=== PATIENT | female | born 1980 | race Caucasian/White ===

== ENCOUNTER 2016-04-13 08:00 | Emergency (ER) | payer BC, OTHER ==
[2016-04-13 08:22] VITALS: BP 129/89
--- NOTE | 2016-04-13 08:43 | UC ---
Respiratory Complaint HPI - HPI Summary HPI Summary: COUGH X 5 DAYS , + CHEST CONGESTION, WHEEZING NO FEVER, + CHILLS - History of Current Complaint Chief Complaint: UCGeneralIllness Stated Complaint: WHEEZING,FEVER Time Seen by Provider: 04/13/16 08:14 Hx Obtained From: Patient Hx Last Menstrual Period: 03/30/16 Onset/Duration: Gradual Onset, Lasting Days - 5, Still Present Timing: Constant Severity Initially: Moderate Severity Currently: Moderate Character: Cough: Nonproductive Aggravating Factors: Exertion, Deep Breaths Associated Signs And Symptoms: Positive: Wheezing, URI, Nasal Congestion - Allergies/Home Medications Allergies/Adverse Reactions: Allergies Allergy/AdvReac Type Severity Reaction Status Date / Time Prednisone Allergy Swelling Verified 07/16/13 17:09 Of Face,Lips,& Throat Sulfa Drugs Allergy Itching Verified 07/16/13 17:09 Tetracyclines Allergy Itching Verified 07/16/13 17:09 acid reflux med Allergy Tachycardia Uncoded 07/16/13 17:09 PMH/Surg Hx/FS Hx/Imm Hx Respiratory History Of: Reports: Asthma - Surgical History Surgical History: Yes Surgery Procedure, Year, and Place: tubal; right hand x 2, including ulnar nerve entrapment 1999. tonsilectomy'. eye '94 - Family History Known Family History: Negative: Diabetes - Social History Alcohol Use: None Substance Use Type: None Smoking Status (MU): Never Smoked Tobacco Review of Systems Constitutional: Fatigue Skin: Negative Eyes: Negative ENT: Nasal Discharge Respiratory: Cough Cardiovascular: Negative All Other Systems Reviewed And Are Negative: Yes Physical Exam Triage Information Reviewed: Yes Appearance: Well-Appearing, No Pain Distress, Well-Nourished Vital Signs: Initial Vital Signs Temp 98.6 F 04/13/16 08:15 Pulse 112 04/13/16 08:15 Resp 16 04/13/16 08:15 BP 129/89 04/13/16 08:15 Pulse Ox 97 04/13/16 08:15 Vital Signs Reviewed: Yes Eyes: Positive: Conjunctiva Clear ENT: Positive: Normal ENT inspection, Hearing grossly normal, Pharynx normal, Nasal congestion, Nasal drainage, TMs normal Neck: Positive: Supple, Nontender, No Lymphadenopathy Respiratory: Positive: Chest non-tender, Wheezing Cardiovascular: Positive: No Murmur, Tachycardia Skin Exam: Normal UC Diagnostic Evaluation - Laboratory O2 Sat by Pulse Oximetry: 97 Respiratory Course/Dx - Differential Dx/Diagnosis Provider Diagnoses: BRONCHITIS Discharge - Discharge Plan Condition: Stable Disposition: HOME Prescriptions: Azithromycin TAB* [Zithromax TAB (Z-KENRICK) 250 mg #6 tabs] 2 tab PO .TODAY, THEN 1 DAILY #1 kenrick Levalbuterol HFA INHALER* [Xopenex Hfa Inhaler*] 1 puff INH Q4H PRN #1 mdi PRN Reason: Shortness Of Breath Patient Education Materials: Acute Bronchitis (ED) Referrals: No Primary Care Phys,NOPCP [Primary Care Provider] - 7 Days
== END 2016-04-13 09:24 | disposition home or self-care (01) ==
LOC: UCCORT 08:00
DX: J40 Bronchitis, not specified as acute or chronic (principal); Z88.1 Allergy status to other antibiotic agents; Z88.2 Allergy status to sulfonamides; Z88.8 Allergy status to other drugs, medicaments and biological substances
CPT/HCPCS: 99212; G0463

== ENCOUNTER 2016-05-17 07:13 | Emergency (ER) | payer MEDICAID, OTHER ==
[2016-05-17] MEDS ORDERED: Ondansetron ODT TAB* 4 MG PO ONE ×2 (07:44)
[2016-05-17] MEDS ORDERED: Ketorolac INJ* 30 MG/ML 1 ML VIAL IM ONE ×2 (07:44)
--- NOTE | 2016-05-17 07:51 | UC ---
Abdominal Pain Female HPI - HPI Summary HPI Summary: 35 yo female with the acute onset of 8/10 ruq abd pain about 2AM pain radiates across upper abd and goes to back nausea but no vomiting no f/c last week had gi bug and lost wt only abd surg has been bilateral TL - History of Current Complaint Chief Complaint: UCGI Stated Complaint: RIB/BACK PAIN Time Seen by Provider: 05/17/16 07:34 Hx Obtained From: Patient Hx Last Menstrual Period: 05/03/16 Onset/Duration: Sudden Onset, Lasting Hours Timing: Constant Severity Initially: Severe Severity Currently: Mild Pain Intensity: 3 Pain Scale Used: 0-10 Numeric Location: Discrete At: RUQ Radiates: Yes Radiates to: Back Character: Colicy Aggravating Factor(s): Nothing Alleviating Factor(s): Nothing Associated Signs and Symptoms: Positive: Nausea Allergies/Adverse Reactions: Allergies Allergy/AdvReac Type Severity Reaction Status Date / Time Prednisone Allergy Swelling Verified 05/17/16 07:22 Of Face,Lips,& Throat Sulfa Drugs Allergy Itching Verified 05/17/16 07:22 Tetracyclines Allergy Itching Verified 05/17/16 07:22 acid reflux med Allergy Tachycardia Uncoded 05/17/16 07:22 Home Medications: Home Medications Famotidine TAB* [Pepcid 20 MG TAB*] 20 mg PO DAILY 05/17/16 [History Confirmed 05/17/16] Probiotic Product [Probiotic Daily] 1 cap PO DAILY 05/17/16 [History Confirmed 05/17/16] PMH/Surg Hx/FS Hx/Imm Hx Previously Healthy: Yes Respiratory History Of: Reports: Asthma - Surgical History Surgical History: Yes Surgery Procedure, Year, and Place: tubal; right hand x 2, including ulnar nerve entrapment 1999. tonsilectomy'. eye ' - Family History Known Family History: Positive: Hypertension Negative: Diabetes - Social History Alcohol Use: None Substance Use Type: None Smoking Status (MU): Never Smoked Tobacco Review of Systems Constitutional: Negative Skin: Negative Eyes: Negative ENT: Negative Respiratory: Negative Cardiovascular: Negative Gastrointestinal: Abdominal Pain Genitourinary: Negative Motor: Negative Neurovascular: Negative Musculoskeletal: Negative Neurological: Negative Psychological: Negative All Other Systems Reviewed And Are Negative: Yes Physical Exam Triage Information Reviewed: Yes Appearance: Well-Nourished, Pain Distress Vital Signs: Initial Vital Signs Temp 99.2 F 05/17/16 07:25 Pulse 117 05/17/16 07:25 Resp 20 05/17/16 07:25 BP 133/73 05/17/16 07:25 Pulse Ox 99 05/17/16 07:25 Vital Signs Reviewed: Yes Eyes: Positive: Conjunctiva Clear ENT: Positive: Hearing grossly normal. Negative: Nasal congestion, Nasal drainage Neck: Positive: Supple, Nontender Respiratory: Positive: Lungs clear, Normal breath sounds, No respiratory distress Cardiovascular: Positive: No Murmur, Pulses Normal, Brisk Capillary Refill Abdomen Description: Negative: Nontender - ndernessuq te Bowel Sounds: Positive: Present Musculoskeletal: Positive: ROM Intact, No Edema Neurological: Positive: Alert Psychological Exam: Normal Skin Exam: Normal Abd Pain Female Course/Dx - Course Course Of Treatment: TO [facility]. D/W attending. declines EMS. will drive her - Differential Dx/Diagnosis Provider Diagnoses: RUQ abd pain. suspect gall bladder disease Discharge - Discharge Plan Condition: Stable Disposition: AGAINST MEDICAL ADVICE Referrals: No Primary Care Phys,NOPCP [Primary Care Provider] -
[2016-05-17 08:05] VITALS: BP 115/81
== END 2016-05-17 08:05 | disposition left against medical advice (07) ==
LOC: UCCORT 07:13
DX: R10.11 Right upper quadrant pain (principal); R11.0 Nausea; Z88.2 Allergy status to sulfonamides; Z88.8 Allergy status to other drugs, medicaments and biological substances
CPT/HCPCS: 96372; 99212; A9270-GY; G0463; J1885

== ENCOUNTER 2016-05-17 10:02 | Observation (INO) | payer MEDICAID ==
[2016-05-17] MEDS ORDERED: NS 0.9% 1000 ML* 1,000 ML IV ONE ×2 (10:33)
[2016-05-17 10:53] LABS: Hematocrit 36 % (35-47); Hemoglobin 11.9 g/dl (12.0-16.0); Mean Corpuscular HGB Conc 33 g/dl (31-36); Mean Corpuscular Hemoglobin 26 pg (27-31); Mean Corpuscular Volume 80 fL (80-97); Mean Platelet Volume 9 um3 (7.4-10.4); Red Cell Distribution Width 17 % (10.5-15); White Blood Count 5.8 10^3/ul (3.5-10.8)
[2016-05-17 11:11] LABS: Albumin 3.9 g/dL (3.2-5.2); BUN/Creatinine Ratio 16.2 (8-20); C Reactive Protein 44.53 mg/L (< 5.00); Calcium 8.6 mg/dL (8.6-10.3); EGFR African American 114.2 (>60); EGFR Non-African American 88.8 (>60); Globulin 2.7 g/dL (2-4); Potassium 3.8 mmol/L (3.5-5.0); Total Bilirubin 0.4 mg/dL (0.2-1.0); Total Protein 6.6 g/dL (6.4-8.9)
--- NOTE | 2016-05-17 11:40 | RAD ---
Indication: Right upper quadrant pain. Real-time sonography of the right upper quadrant was performed. The liver measures 18 cm in length. It is diffusely increased in echogenicity consistent with hepatic steatosis. No focal lesions or intrahepatic ductal dilatation is noted. The gallbladder demonstrates moderate distention. There are nonshadowing echogenic foci in the dependent portion of the gallbladder which appear nonshadowing calculi or cholesterol polyps. There is a small amount of pericholecystic fluid present. There is a sonographic Lundberg's sign. Right kidney measures 10.7 x 3.6 x 3.9 cm with no hydronephrosis. Pancreas is not visualized due to overlying gas. Aorta and inferior vena cava are unremarkable. IMPRESSION: Distended gallbladder with pericholecystic fluid and a positive sonographic Lundberg's sign. Echogenic foci in the gallbladder which are nonshadowing in the dependent portion of the gallbladder for which this may represent polyps or nonshadowing gallstones.
[2016-05-17] MEDS ORDERED: Ondansetron INJ* 2 MG/ML VIAL IV ONE ×2 (13:30)
[2016-05-17] MEDS ORDERED: Morphine INJ* 4 MG/ML 1 ML CARPUJECT IV ONE ×2 (13:30)
[2016-05-17] MEDS ORDERED: Acetaminophen TAB* 325 MG PO ONE (13:48)
[2016-05-17] MEDS ORDERED: Acetaminophen TAB* 325 MG PO PRN (13:48)
[2016-05-17] MEDS ORDERED: Morphine INJ* 2 MG/ML 1 ML CARPUJECT IV PRN ×2 (13:48→16:28)
[2016-05-17] MEDS ORDERED: Ondansetron INJ* 2 MG/ML VIAL IV PRN (13:50)
[2016-05-17] MEDS ORDERED: Famotidine IV * 20 MG in NS 0.9% 100 ML* 100 ML IVPB ONE ×4 (13:53)
[2016-05-17] MEDS ORDERED: Atracurium* 10 MG/ML 10 ML VIAL ONE ×2 (14:07)
[2016-05-17] MEDS ORDERED: Midazolam* 1 MG/ML 5 ML VIAL (5 MG) ONE ×2 (14:07)
[2016-05-17] MEDS ORDERED: Morphine INJ* 10 MG/ML 1 ML CARPUJECT ONE ×2 (14:07)
[2016-05-17] MEDS ORDERED: KETAMINE HCL* 50 MG/ML 10 ML VIAL ONE (14:07)
[2016-05-17] MEDS ORDERED: fentaNYL* 50 MCG/ML 2 ML VIAL (100 MCG VIAL) ONE ×2 (14:07)
--- NOTE | 2016-05-17 14:11 | ED ---
Latrell Villa Adam, scribed for Ronald Chaparro MD on 05/17/16 at 1037 . Abdominal Pain/Female - HPI Summary HPI Summary: Pt is a 35 year old female presenting with RUQ abdominal pain. The pain set on suddenly at 03:20 this morning, waking the pt from sleep. She states that she had already woken up several times to urinate during the night. The RUQ pain radiates around to the pt's back. She went to [facility] and states that she was sent to the ED for ultrasound. Her pain was 8/10 in severity but is currently 4-5 after she was given Toradol at the clinic. Pt also c/o nausea, chills, and soft stool which is not watery. She denies vomiting. She states that she and the rest of her family had a stomach bug last week but that she has not experienced this pain before. PMHx of asthma and macular degeneration. Surgical Hx of tubal ligation and tonsillectomy. No tobacco/alcohol use. - History of Current Complaint Chief Complaint: EDAbdPain Stated Complaint: ABD/BACK PAIN/NAUSEA Time Seen by Provider: 05/17/16 10:26 Hx Obtained From: Patient Hx Last Menstrual Period: 05/03/16 Onset/Duration: Sudden Onset, Lasting Hours, Still Present Timing: Constant Severity Initially: Moderate Severity Currently: Moderate Pain Intensity: 6 Pain Scale Used: 0-10 Numeric Location: Discrete At: RUQ Radiates: Yes Radiates to: Back Aggravating Factor(s): Nothing Alleviating Factor(s): Medications - Toradol Associated Signs and Symptoms: Positive: Back Pain, Nausea, Diarrhea - Soft stool, not watery, Other: - Chills. Negative: Vomiting Allergies/Adverse Reactions: Allergies Allergy/AdvReac Type Severity Reaction Status Date / Time Prednisone Allergy Swelling Verified 05/17/16 10:06 Of Face,Lips,& Throat Sulfa Drugs Allergy Itching Verified 05/17/16 10:06 Tetracyclines Allergy Itching Verified 05/17/16 10:06 acid reflux med Allergy Tachycardia Uncoded 05/17/16 10:06 PMH/Surg Hx/FS Hx/Imm Hx Respiratory History: Reports: Hx Asthma - Surgical History Surgery Procedure, Year, and Place: tubal; right hand x 2, including ulnar nerve entrapment 1999. tonsilectomy. 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 Negative: Vomiting All Other Systems Reviewed And Are Negative: Yes Physical Exam - Summary Physical Exam Summary: VITAL SIGNS: Reviewed. GENERAL: Patient is a well developed and nourished female who is lying comfortable in the stretcher. Patient is not in any acute respiratory distress. HEAD AND FACE: Normocephalic and atraumatic. EYES: PERRLA, EOMI x 2, No injected conjunctiva. EARS: Hearing grossly intact. Ear canals and tympanic membranes are WNL. MOUTH: Oropharynx within normal limits. NECK: Supple, trachea is midline, no adenopathy, no JVD. CHEST: Symmetric, no tenderness at palpation LUNGS: Clear to auscultation bilaterally. No wheezing or crackles. CVS: RRR,, S1 and S2 present, no murmurs or gallops appreciated. ABDOMEN: Soft, positive RUQ tenderness. No signs of distention. Positive bowel sounds. No rebound no guarding, and no masses palpated. No abdominal bruit or pulsations. EXTREMITIES: FROM in all major joints, no edema, no cyanosis or clubbing. NEURO: Alert and oriented x 3. No acute neurological deficits. Speech is normal. SKIN: Dry and warm Triage Information Reviewed: Yes Vital Signs On Initial Exam: Initial Vitals Temp Pulse Resp BP Pulse Ox 99.1 F 103 16 125/82 98 05/17/16 10:06 05/17/16 10:06 05/17/16 10:06 05/17/16 10:06 05/17/16 10:06 Vital Signs Reviewed: Yes Diagnostics - Vital Signs Vital Signs Temp Pulse Resp BP Pulse Ox 05/17/16 10:06 99.1 F 103 16 125/82 98 - Laboratory Result Diagrams: 05/17/16 10:40 05/17/16 10:40 Lab Statement: Any lab studies that have been ordered have been reviewed, and results considered in the medical decision making process. - Additional Comments Diagnostic Additional Comments: Gallbladder ultrasound - IMPRESSION: Distended gallbladder with pericholecystic fluid and a positive sonographic Lundberg's sign. Echogenic foci in the gallbladder which are nonshadowing in the dependent portion of the gallbladder for which this may represent polyps or nonshadowing gallstones. Abdominal Pain Fem Course/Dx - Course Course Of Treatment: Surgery was called at approximately 12:00. The doctor was in surgery but was to be notified of the request for consult. 13:10 - The PA for Dr. Guadalupe came to examine the patient and decided to discharge her home, but the patient is now in pain. 13:15 - Talked to Dr. Guadalupe on the phone. He will send the PA back down to re-examine the patient. 13:26 - Dr. Guadalupe's PA came to re-examine the patient and they have decided to accept her for admission. Pt is a 35 year old female presenting with RUQ abdominal pain. The pain set on suddenly at 03:20 this morning, waking the pt from sleep. She states that she had already woken up several times to urinate during the night. The RUQ pain radiates around to the pt's back. She went to [facility] and states that she was sent to the ED for ultrasound. Her pain was 8/10 in severity but is currently 4-5 after she was given Toradol at the clinic. Pt also c/o nausea, chills, and soft stool which is not watery. She denies vomiting. She states that she and the rest of her family had a stomach bug last week but that she has not experienced this pain before. PMHx of asthma and macular degeneration. Surgical Hx of tubal ligation and tonsillectomy. No tobacco/alcohol use. BW is WNL except for hemoglobin of 11.9 and C-Reactive Protein of 44.53. US of RUQ shows a distended gallbladder with pericholecystic fluid and positive Lundberg's sign. I discussed the case with Dr. Guadalupe who sent a PA to evaluate the patient. Inititially they recommended that the pt be discharged seeing as she was asymptomatic. Before discharge the pt developed more pain with mild nausea without vomiting. The pt was reassessed by Dr. Guadalupe' s PA and now they recommend for the pt to be admitted for further work-up and management. The pt was given IV fluids, somethng for nausea, and morphine for pain. The pt is hemodynamically stable and A&Ox3. She will be admitted to Dr. Guadalupe's services. - Diagnoses Differential Diagnosis: Positive: Constipation, Gall Bladder Disease, Pancreatitis, Renal Colic, Urinary Tract Infection Provider Diagnoses: Acute cholecystitis Discharge - Discharge Plan Condition: Stable Disposition: ADMITTED TO [facility] Referrals: No Primary Care Phys,NOPCP [Primary Care Provider] - The documentation as recorded by the Latrell rojas Adam accurately reflects the service I personally performed and the decisions made by me, Ronald Chaparro MD.
[2016-05-17 14:28] LABS: Urine Bacteria Absent (Absent); Urine Bilirubin Negative (Negative); Urine Glucose Negative (Negative); Urine Nitrite Negative (Negative)
[2016-05-17] MEDS ORDERED: Famotidine IV* 10 MG/ML 2 ML (20 mg) IV ONE (16:27)
[2016-05-17] MEDS ORDERED: Buffered Lidocaine 1% SYR 3ML* 3 ML/SYR SYRINGE INTRADERM ONE (16:27)
[2016-05-17] MEDS ORDERED: PROCHLORPERAZINE INJ 5 MG/ML 2 ML VIAL IV PRN (16:28)
[2016-05-17] MEDS ORDERED: oxyCODONE/Acetamin 5/325 MG* TAB PO PRN ×3 (16:28→18:48)
[2016-05-17] MEDS ORDERED: fentaNYL* 50 MCG/ML 2 ML VIAL (100 MCG VIAL) IV PRN (16:28)
[2016-05-17] MEDS ORDERED: ceFAZolin 2 GM PREMIX (*) 2 GM/50 ML BAG IVPB ONE ×2 (16:36)
[2016-05-17] MEDS ORDERED: Levalbuterol 1.25MG/0.5ML NEB ONE ×2 (17:04)
[2016-05-17] MEDS ORDERED: Scopolamine 1.5 mg* PATCH ONE ×2 (17:04)
[2016-05-17] MEDS ORDERED: Levalbuterol 0.63MG/3ML NEB INH ONE (17:09)
[2016-05-17] MEDS ORDERED: Bupivacaine 0.25% EPI 200,000* 30 ML SDV ONE ×2 (17:22)
[2016-05-17] MEDS ORDERED: Dexamethasone IV* 4 MG/ML 1 ML (4 MG) ONE ×2 (17:38)
[2016-05-17] MEDS ORDERED: PROCHLORPERAZINE INJ 5 MG/ML 2 ML VIAL ONE ×2 (17:38)
[2016-05-17] MEDS ORDERED: Lidocaine 2% PF * 5 ML VIAL ONE ×2 (17:38)
[2016-05-17] MEDS ORDERED: Ondansetron INJ* 2 MG/ML VIAL ONE ×2 (17:38)
[2016-05-17] MEDS ORDERED: Propofol* 10 MG/ML 20 ML BTL IV PUSH ONE ×2 (17:38)
--- NOTE | 2016-05-17 17:42 | CONS ---
Amended report to correct account number. CONSULTATION REPORT: DATE OF CONSULT: 05/17/16 ATTENDING PHYSICIAN: Sidney Dominguez MD. REASON FOR CONSULTATION: Right upper quadrant abdominal pain and acute cholecystitis. CHIEF COMPLAINT: Abdominal pain. HISTORY OF PRESENT ILLNESS: Ms. Zamudio is a pleasant 35-year-old female who presented to the emergency room earlier today with complaints of progressively worsening epigastric and right upper quadrant pain since early this morning. The patient notes that her pain started roughly around 3 o'clock this morning that awakened her up from her sleep. She notes pain has been dull and sharp on occasion, located in the epigastric and right upper quadrant with radiation to her right flank and back. She notes associated nausea, but denies any vomiting. She already has awoken several times during the night, but pain has gotten progressively worse that kept her awake since 3 o'clock this morning. She denies any other associated symptoms. She has never had any similar complaints in the past. She denies any jaundice or changes in the color of stools or urine. She went to [facility] where she resides close by and she was evaluated there and was told to come to the emergency room for further evaluation regarding possible gall-bladder disease. Her pain back then was 8/10 in severity and was relieved after she was given a shot of Toradol. During her ER visit, the patient noted that pain eventually got better and denies any further nausea or vomiting. She notes that herself and her entire family had had "stomach bug" last week, but everybody has been doing well since last Sunday with the exception of occasional diarrhea last week and she denies any changes in the bowel habits. She otherwise is a relatively healthy young female who appeared comfortable at this time of consultation. PAST MEDICAL HISTORY: Significant for macular degeneration for which she had a surgery on her left eye at age 13. She tells me that she is legally blind. She also has a history of asthma with occasional use of inhalers. PAST SURGICAL HISTORY: Significant for tubal ligation and tonsillectomy. She denies any prior abdominal surgery. CURRENT MEDICATIONS: At home include: 1. Pepcid 20 mg p.o. daily. 2. Albuterol inhaler 2 puffs as needed for shortness of breath. 3. Probiotic product such as yogurt. ALLERGIES: She reports allergies to PREDNISONE causing swelling of her face and throat, SULFA DRUGS and TETRACYCLINES that caused itching as well as some acid reflux medicine that she could not remember the name that caused tachycardia. FAMILY HISTORY: Significant for hypertension and cardiovascular disease on both her maternal and paternal sides, but denies any colorectal malignancies. She also notes history of gallbladder disease in her maternal grandmother and few aunts and uncles. SOCIAL HISTORY: The patient is a nonsmoker who drinks rarely and denies any recreational drug use. REVIEW OF SYSTEMS: See HPI. Otherwise negative. She denies any fever, chills , or recent weight loss. No sore throat, difficulty breathing, or dysphagia. No dyspnea, shortness of breath, or chest pain. Denies any syncope, blurred vision, or diplopia. She denies any hematuria, dysuria, or urinary frequency. PHYSICAL EXAM: General: She is a pleasant, obese, middle-aged female in no acute distress or discomfort at the time of consultation. Vitals: Her vitals revealed a temperature of 99.1. Her blood pressure is 125/77, O2 sats of 98%, pulse of 102. HEENT: Sclerae anicteric. PERRLA. EOMs intact. Oropharynx is pink, moist with no exudate. Neck: Supple. Trachea midline. No cervical adenopathy, thyromegaly, or JVD. Lungs: Clear to auscultation bilaterally. Heart: Regular rate and rhythm. Normal S1 and S2 without rubs, murmurs, or gallops. Back: With normal curvature. No CVA tenderness. Breast Exam: Deferred at this time. Abdomen: Soft and nondistended. There is moderate epigastric and right upper quadrant tenderness on palpation. There is no guarding, rigidity, or rebound tenderness. No hernias, masses, or hepatosplenomegaly. There is very mild positivity for Lundberg's sign on deep palpation. Extremities: Without cyanosis, clubbing, or edema. Neurologic: Grossly intact. Rectal: Exam deferred at this time. LABORATORY WORKUP: The patient had CBC and chemistry workup at ED visit revealing normal white count of 5800, hemoglobin 11.9, hematocrit 36, and platelets of 213. Her sodium was 136, potassium 3.8, chloride 104, carbon dioxide 26, BUN is 12, creatinine 0.7, and glucose of 94. Her C-reactive protein was elevated at 44.5 value. The remainder of her LFTs, amylase, and lipase were normal. ACCESSORY DIAGNOSTIC DATA: The patient had a right upper quadrant ultrasound that revealed findings consistent with distended gallbladder with pericholecystic fluid and positive sonographic Lundberg's sign. There was no gallbladder wall thickening or any evidence of CBD dilatation. There is also some suggestion of gallstones or possibly gallbladder polyps within the cavity. ASSESSMENT: A 35-year-old female with signs and symptoms consistent with acute attack of gallbladder disease and ultrasound findings consistent with acute cholecystitis. PLAN: During her ER stay, the patient had noted that her pain has gotten significantly worse since I saw her earlier, for which I talked to her proceeding with surgery later today. The rationale, indications, risks, and benefits of proceeding with a laparoscopic cholecystectomy were discussed with her today. The risks include but not limited to infection, bleeding, or injury to adjacent structures. I also expressed the option of managing her pain as well as seeing her in the office as an outpatient to schedule her surgery electively. Given her recurrent pain on and off since earlier this morning, the patient wishes to proceed with surgery later this afternoon. The case was discussed with Dr. Dominguez who agreed to the plans as outlined. The patient will be kept n.p.o. We will start her on IV fluids as well as analgesics and Pepcid in anticipation for a laparoscopic cholecystectomy later this afternoon. We will follow her up accordingly. SCARLETT ZEPEDA [id number]/[facility] #: [id number] [facility] HOSPITALPapa
[2016-05-17] MEDS ORDERED: Metoprolol Tartrate IV* 1 MG/ML 5 ML VIAL ONE ×2 (17:48)
[2016-05-17] MEDS ORDERED: Neostigmine Methylsulfate* 2 MG/2 ML SYRINGE ONE ×4 (17:48→18:20)
[2016-05-17] MEDS ORDERED: Glycopyrrolate IV* 0.2 MG/ML 1 ML VIAL ONE ×4 (17:48→18:20)
[2016-05-17] MEDS ORDERED: Scopolamine 1.5 mg* PATCH TRANSDERM SCH ×2 (18:00)
[2016-05-17] MEDS ORDERED: Levalbuterol HFA INHALER* 1 PUFF MDI INH ONE (18:48)
[2016-05-17] MEDS ORDERED: Levalbuterol HFA INHALER* 1 PUFF MDI INH PRN (18:48)
--- NOTE | 2016-05-17 18:52 | PN ---
Progress Note - Progress Note Note: Brief Operative Note: Preop Dx: Acute cholecystitis Postop Dx: same Procedure: laparoscopic cholecystectomy Anesthesia: GET Surgeon: Alberto Asst: SCARLETT Min EBL: <100 ml Fluids: 1000 ml RL Drains: none Specimen: GB Findings: dictated
[2016-05-18 08:17] VITALS: BP 124/65
[2016-05-18] MEDS ORDERED: Influenza VAC *QUAD* 2016-17* 0.5 ML SYRINGE IM ONE (09:00)
--- NOTE | 2016-05-18 09:55 | SURGPN ---
Subjective - Introduction -: Admitted on: 05/17/2016 Patient's surgical date: 05/17/2016 Procedure completed: Laparoscopic cholecystectomy - Medications -: Active Medications Generic Name Dose Route Start Last Admin Trade Name Cynthia PRN Reason Stop Dose Admin Acetaminophen 650 mg 05/17/16 13:48 05/18/16 06:27 Tylenol Tab* PO 650 mg Q6H PRN Administration PAIN Levalbuterol HCl 1 puff 05/17/16 18:48 Xopenex Hfa Inhaler* INH Q4H PRN SHORTNESS OF BREATH Ondansetron HCl 4 mg 05/17/16 13:50 Zofran Inj* IV Q4H PRN NAUSEA Oxycodone/Acetaminophen 1 tab 05/17/16 18:47 Percocet 5/325 Tab* PO Q4H PRN PAIN - MODERATE Oxycodone/Acetaminophen 2 tab 05/17/16 18:48 Percocet 5/325 Tab* PO Q4H PRN PAIN - MODERATE TO SEVERE Pharmacy Profile Note 1 note 05/20/16 18:00 Scopolomine Patch Remove* PATCH OFF 05/20/16 23:59 .AFTER 72 HOURS MEERA - Comments Comments: Patient reports doing well, denies any complaints. Tolerating diet, denies N/V, fever or chills. Objective - Objective -: Awake and alert, sitting on her bed, in NAD - Intake and Output -: Intake & Output 05/16/16 05/17/16 05/18/16 05/19/16 06:59 06:59 06:59 06:59 Intake Total 1919 Output Total 1475 Balance 444 Weight 175 lb Intake: IV Fluids 1198 LR 1000 NS 50ML, Cefazolin 2G 50 IVPB 421 LR 421 Oral 300 Output: Urine 1475 Other: # Bowel Movements 0 Estimated Blood Loss MINIMAL Comment Surgical Physical Exam - Comments -: Vitals reviewed, afebrile. Lungs, CTA bilat. Abdomen: Soft, no-distended. Mild incisional tenderness. No rigidity, gaurding or rebound tenderness. Incisions clean, dry and intact. Ext.: No edema. Assessment and Plan - Assessment -: A 35 y/o female, s/p laparoscopic cholecystectomy, doing well. - Plan Surgical Plan of Care: Discontinue IV, Discharge Additional Comments: Patient will be discharged to home this AM. She is stable, doing well and in no pain. All discharge instructions were discussed with her. She will F/U with office next week.
--- NOTE | 2016-05-18 23:07 | DS ---
DISCHARGE SUMMARY: DATE OF ADMISSION: 05/17/16 DATE OF DISCHARGE: 05/18/16 PATIENT OF: Dr. Sidney Dominguez. REASON FOR ADMISSION: Abdominal pain and acute cholecystitis. ADMISSION DIAGNOSES: 1. Abdominal pain, right upper quadrant. 2. Acute cholecystitis. 3. Gastroesophageal reflux disease. 4. Asthma. DISCHARGE DIAGNOSES: 1. Abdominal pain, right upper quadrant. 2. Acute cholecystitis. 3. Gastroesophageal reflux disease. 4. Asthma. ADMITTING PHYSICIAN: Dr. Sidney Dominguez. CONSULTATIONS: None. PROCEDURE: Laparoscopic cholecystectomy on 05/17/16. BRIEF HISTORY OF PRESENT ILLNESS: Ms. Zamudio is a pleasant 35-year-old female who presented to the emergency room with complaints of acute onset of right upper quadrant abdominal pain since earlier that morning. She noted that she got up roughly around 3 o'clock on 05/17/16 with sudden onset of epigastric and right upper quadrant abdominal pain that has gotten progressively worse for which she went to the urgent care clinic and was evaluated. The patient was asked to go to the emergency room for further evaluation regarding gallbladder disease. During her ER visit, she had an ultrasound that revealed dilated gallbladder and pericholecystic fluid consistent with acute cholecystitis. We were asked to see the patient for consultation regarding her pain and findings of the ultrasound for which she was admitted and planned to have surgery later that day. She otherwise is a relatively healthy, middle-aged female with a past medical history significant for GERD and asthma. HOSPITAL COURSE: The patient was admitted directly from the emergency room in anticipation for surgery later that day. She went to the operating room in the afternoon of 05/17/16 and she underwent a laparoscopic cholecystectomy that was uneventful. She went to recovery after that in stable condition and was admitted back to the floor for observation overnight. She did very well, was only mild incisional discomfort on the next morning. She denied any nausea, vomiting, or any changes in the bowel habits. She was able to tolerate clear liquid diet and her diet was eventually advanced to regular on the next day. She continued to improve and was ambulatory and was ready to be discharged home on 05/18/16. DISCHARGE MEDICATIONS: The patient was discharged on her usual home medications includin. Pepcid 20 mg p.o. daily. 2. Xopenex inhaler 2 puffs q.4 to 6 hours as needed for pain. 3. Tylenol Extra Strength as needed for pain. PROBLEM LIST: Acute cholecystitis, status post laparoscopic cholecystectomy on 05/18/16. SCARLETT ZEPEDA [id number]/[facility] #: [id number] MTDD
[2016-05-20] MEDS ORDERED: Scopolamine PATCH Remove* 1 NOTE MISC PATCH OFF SCH (18:00)
--- NOTE | 2016-05-25 18:00 | OP ---
DATE OF OPERATION: 05/17/16 - ROOM #339 DATE OF : 78 SURGEON: Sidney Dominguez MD. HORSE RIDER: SCARLETT Thrasher ANESTHESIOLOGIST: Elian Addison MD ANESTHESIA: General anesthesia. PRE-OP DIAGNOSIS: Acute cholecystitis. POST-OP DIAGNOSIS: Acute cholecystitis. OPERATIVE PROCEDURE: Laparoscopic cholecystectomy. ESTIMATED BLOOD LOSS: Less than 100 cc. FLUIDS: 1000 cc of Lactated Ringer's. DRAINS: None. SPECIMEN: Gallbladder. INDICATIONS OF PROCEDURE: Ms. Zamudio is a 35-year-old female who was admitted to the hospitalist service, we were consulted, and the patient was seen by So PANTOJA, and the case was discussed on 05/17/16. After examining the patient, I agreed with the diagnosis of acute cholecystitis and recommended laparoscopic cholecystectomy. I discussed the procedure with her, going over the risks, benefits, and alternatives and the patient agreed to proceed. As per routine, we spoke of the possible complications, which include but are not limited to bleeding, infection, bile leak, common bile duct or bowel injury, need for open procedure, or need for additional procedures. The patient signed consent, was marked, and then taken to the operating room. DESCRIPTION OF PROCEDURE: The patient was identified in the preoperative area, marked and brought to the OR, placed on the operating room table in the supine position. Preoperative antibiotics were given. Sequential devices were placed on bilateral lower extremities. General anesthesia was induced. The patient's abdomen was prepped and draped in a standard surgical fashion and a time-out was performed. The folds of the umbilicus were elevated anteriorly and a Veress needle was inserted into the abdominal cavity, which was then allowed to be insufflated to a pressure of 15 mmHg. The patient tolerated the insufflation well. A paraumbilical incision was then made and a 5-mm trocar was inserted. Veress needle was removed. Review of the abdomen showed no evidence of trocar injury or Veress needle injury. Attention was then turned to the right upper quadrant. Additional trocars were then placed in the following position; a 12 mm in the subxiphoid area and two 5 mm along the right costal margin. Fundus of the gallbladder was identified, this was somewhat edematous, it was grasped and retracted over the liver. Infundibulum was then grasped and retracted laterally. Electrocautery was used to free the peritoneum off the lateral aspect of the gallbladder and off the medial aspect. This gave us an opportunity to see the cystic duct extending towards the aime hepatis. The common bile duct was never clearly visualized, but we persisted in isolating the cystic duct. Cystic artery was isolated, was doubly clipped and ligated, cystic duct was triply clipped and ligated. Gallbladder was perforated at this point, but we are able to remove it from its liver bed, place it in the endoscopic retrieval bag and bring it out through the subxiphoid port site. Suction irrigation was used until the effluent was clear. The cystic duct stump and cystic artery stump showed no bleeding or bile leak. The abdomen was then allowed to collapse. Trocars were removed under direct vision. All four skin incisions were reapproximated with 4-0 Monocryl subcuticular sutures followed by sterile dressing. [id number]/[facility] #: [id number] BRISSA
== END 2016-05-18 11:30 | disposition home or self-care (01) ==
LOC: ED 10:02 → SSU 13:41
PROVIDERS: ADMIT Surgery; ATTEND Surgery
PROC: 0FT44ZZ Resection of Gallbladder, Percutaneous Endoscopic Approach (ICD-10-PCS; principal; 2016-05-17 15:45)
DX: K81.0 Acute cholecystitis (principal); K21.9 Gastro-esophageal reflux disease without esophagitis; J45.909 Unspecified asthma, uncomplicated; Z88.2 Allergy status to sulfonamides; Z88.1 Allergy status to other antibiotic agents; Z88.8 Allergy status to other drugs, medicaments and biological substances; Z23 Encounter for immunization
CPT/HCPCS: 36415; 76705; 80053; 81003; 81015; 82150; 83690; 85025; 86140; 87086; 88304; 90471; 90686; 94760; 99284; A9270-GY; G0008; G0378; J0690; J0780; J1100; J2250; J2270; J2405; J2704; J3010; J3490

== ENCOUNTER 2016-08-23 08:25 | Emergency (ER) | payer OTHER ==
[2016-08-23 08:38] VITALS: BP 110/64
--- NOTE | 2016-08-23 08:53 | UC ---
Throat Pain/Nasal Yovani HPI - HPI Summary HPI Summary: The patient comes in today for: 1. Sore throat: Onset: 5 days. Palliative/provocative: Swallowing makes it worse as does eating. Quality: Scratchy Region: Posterior pharynx. Severity: 5/10 Time: Constant. Associated symptoms: Cough: Present, non-productive. Rhinitis: None. FEvers: None. * - History of Current Complaint Chief Complaint: UCGeneralIllness Stated Complaint: SORE THROAT Time Seen by Provider: 08/23/16 08:40 Hx Obtained From: Patient Hx Last Menstrual Period: 08/21/16 - Allergies/Home Medications Allergies/Adverse Reactions: Allergies Allergy/AdvReac Type Severity Reaction Status Date / Time Prednisone Allergy Swelling Verified 08/23/16 08:33 Of Face,Lips,& Throat Ranitidine [From Zantac] Allergy Tachycardia Verified 08/23/16 08:33 Sulfa Drugs Allergy Itching Verified 08/23/16 08:33 Tetracyclines Allergy Itching Verified 08/23/16 08:33 Seasonal Allergies Allergy Runny Nose Uncoded 08/23/16 08:33 Home Medications: Home Medications Ibuprofen TAB* [Advil TAB*] 600 mg PO Q6H PRN 08/23/16 [History Confirmed ] PMH/Surg Hx/FS Hx/Imm Hx Previously Healthy: No Respiratory History: Asthma GI/ History: Gastroesophageal Reflux - Surgical History Surgical History: Yes Surgery Procedure, Year, and Place: Cholecystectomy, 05/17/16, [facility] [place]; Tubal Ligation, 2009, [facility] [place]; right hand x 2, including ulnar nerve entrapment 1999. tonsilectomy - Family History Known Family History: Positive: Cardiac Disease, Hypertension, Other - "Everything" Negative: Diabetes - Social History Occupation: Unemployed Alcohol Use: None Substance Use Type: None Smoking Status (MU): Never Smoked Tobacco - Immunization History Most Recent Influenza Vaccination: 05/18/16 Most Recent Tetanus Shot: unknown Most Recent Pneumonia Vaccination: approx 2009 Review of Systems Constitutional: Negative Skin: Negative Eyes: Negative ENT: Sore Throat Respiratory: Negative Cardiovascular: Negative Gastrointestinal: Negative Genitourinary: Negative All Other Systems Reviewed And Are Negative: Yes Physical Exam Triage Information Reviewed: Yes Appearance: Well-Appearing, No Pain Distress, Well-Nourished Vital Signs: Initial Vital Signs Temp 98.8 F 08/23/16 08:30 Pulse 90 08/23/16 08:30 Resp 16 08/23/16 08:30 BP 110/64 08/23/16 08:30 Pulse Ox 98 08/23/16 08:30 Vital Signs Reviewed: Yes Eyes: Positive: Conjunctiva Clear. Negative: Discharge ENT: Positive: Hearing grossly normal. Negative: Pharyngeal erythema, Nasal congestion, Nasal drainage, TM bulging, TM dull, TM red, Tonsillar swelling, Tonsillar exudate Dental: Negative: Gross Decay/Caries @, Dental Fracture @ Neck: Positive: Supple, Nontender, No Lymphadenopathy. Negative: Nuchal Rigidity Respiratory: Positive: Lungs clear, No respiratory distress, No accessory muscle use. Negative: Crackles, Wheezing Cardiovascular: Positive: RRR, No Murmur Abdomen Description: Positive: Nontender, No Organomegaly, Soft. Negative: Distended, Guarding Musculoskeletal: Positive: Strength Intact, ROM Intact Neurological: Positive: Alert, Muscle Tone Normal Psychological: Positive: Age Appropriate Behavior, Consolable Skin: Negative: rashes, breakdown Diagnostics - Laboratory Diagnostic Studies Completed/Ordered: Strep test: (+). Throat Pain/Nasal Course/Dx - Course Assessment/Plan: Patient told of the positive strep test. Treatment discussed. - Differential Dx/Diagnosis Provider Diagnoses: Strep throat. Discharge - Discharge Plan Condition: Stable Disposition: HOME Patient Education Materials: Strep Throat (ED) Referrals: No Primary Care Phys,NOPCP [Primary Care Provider] - 1 Week (Please see your primary care provider in about a week. If you don't have a primary care provider, please reference the included sheet of local provider. If you get worse, please be seen sooner.)
== END 2016-08-23 09:00 | disposition home or self-care (01) ==
LOC: UCCORT 08:25
DX: J02.0 Streptococcal pharyngitis (principal)
CPT/HCPCS: 87651; 99212; G0463

== ENCOUNTER 2017-05-01 12:04 | Emergency (ER) | payer MEDICAID, OTHER ==
[2017-05-01 14:14] VITALS: BP 154/73
--- NOTE | 2017-05-28 09:51 | UC ---
FLU HPI - HPI Summary HPI Summary: 36 year old female with c/o: body aches, low grade fevers, itching, coughing- non-productive, nausea- no vomiting. PMH- + for asthma. - History of Current Complaint Chief Complaint: UCGeneralIllness Stated Complaint: FEVER,DRY COUGH Time Seen by Provider: 05/01/17 14:12 Hx Obtained From: Patient Hx Last Menstrual Period: DUE NOW Onset/Duration: Gradual Onset, Lasting Days Severity Currently: Mild Severity Initially: Mild Pain Intensity: 0 Pain Scale Used: 0-10 Numeric Associated Signs & Symptoms: Positive: Fever, Cough Related Hx: Possible Flu/Infectious Exposure - Allergy/Home Medications Allergies/Adverse Reactions: Allergies Allergy/AdvReac Type Severity Reaction Status Date / Time MS Prednisone [Prednisone] Allergy Swelling Verified 05/01/17 14:14 Of Face,Lips,& Throat MS Ranitidine [From Zantac] Allergy Tachycardia Verified 05/01/17 14:14 MS Sulfa Drugs [Sulfa Drugs] Allergy Itching Verified 05/01/17 14:14 MS Tetracyclines Allergy Itching Verified 05/01/17 14:14 [Tetracyclines] Seasonal Allergies Allergy Runny Nose Uncoded 05/01/17 14:14 PMH/Surg Hx/FS Hx/Imm Hx Previously Healthy: No - asthma - Surgical History Surgical History: Yes Surgery Procedure, Year, and Place: Cholecystectomy, 05/17/16, [facility] [place]; Tubal Ligation, 2009, [facility] [place]; right hand x 2, including ulnar nerve entrapment 1999. tonsilectomy', GALLBLADDER REMOVED - Family History Known Family History: Positive: Cardiac Disease, Hypertension, Other - "Everything" Negative: Diabetes - Social History Alcohol Use: None Substance Use Type: None Smoking Status (MU): Never Smoked Tobacco - Immunization History Most Recent Influenza Vaccination: 05/18/16 Most Recent Tetanus Shot: unknown Most Recent Pneumonia Vaccination: approx 2009 Review of Systems Constitutional: Fever, Fatigue Respiratory: Cough Gastrointestinal: Nausea Musculoskeletal: Myalgia Neurological: Negative Psychological: Negative Is Patient Immunocompromised?: No All Other Systems Reviewed And Are Negative: Yes Physical Exam Triage Information Reviewed: Yes Appearance: Well-Appearing, No Pain Distress, Well-Nourished Vital Signs: Initial Vital Signs Temp 99.1 F 05/01/17 14:08 Pulse 100 05/01/17 14:08 Resp 18 05/01/17 14:08 BP 154/73 05/01/17 14:08 Pulse Ox 97 05/01/17 14:08 Vital Signs Reviewed: Yes Eyes: Positive: Conjunctiva Clear ENT: Positive: Pharyngeal erythema - minimal, TMs normal, Uvula midline. Negative: Tonsillar swelling, Tonsillar exudate, Hoarse voice, Sinus tenderness Neck: Positive: Supple, Nontender, No Lymphadenopathy Respiratory: Positive: Chest non-tender, Lungs clear, Normal breath sounds, No respiratory distress, No accessory muscle use. Negative: Crackles, Rhonchi, Stridor, Wheezing Cardiovascular: Positive: RRR, No Murmur, Pulses Normal Abdomen Description: Positive: Nontender, Soft, CVA Tenderness (R), CVA Tenderness (L) Neurological Exam: Normal Psychological Exam: Normal Skin Exam: Normal Flu Course/Dx - Course Course Of Treatment: rapid flu negative, viral illness, work note given, conservative treatments. - Differential Dx/Diagnosis Differential Diagnosis/HQI/PQRI: Influenza, Pneumonia, RSV, Upper Respiratory Infection Provider Diagnoses: URI Discharge - Discharge Plan Condition: Good Disposition: HOME Prescriptions: Dextromethorphan/Benzocaine [Cepacol Sorethroat-Cough Andre] 1 each PO Q6HR #30 lozenge Patient Education Materials: Viral Syndrome (ED) Forms: *Work Release Referrals: No Primary Care Phys,NOPCP [Primary Care Provider] - Additional Instructions: - increase fluid intake - lozenges for sore throat - MOtrin/ tylenol as needed for pain
== END 2017-05-01 15:26 | disposition home or self-care (01) ==
LOC: UCCORT 12:04
DX: J06.9 Acute upper respiratory infection, unspecified (principal); J45.909 Unspecified asthma, uncomplicated; Z88.2 Allergy status to sulfonamides; Z88.8 Allergy status to other drugs, medicaments and biological substances
CPT/HCPCS: 87502; 99212; G0463

== ENCOUNTER 2018-03-25 14:35 | Emergency (ER) | payer OTHER ==
[2018-03-25 15:40] VITALS: BP 140/70
[2018-03-25] MEDS ORDERED: Ibuprofen TAB* 400 MG PO ONE (15:59)
--- NOTE | 2018-03-25 16:00 | UC ---
Hand/Wrist HPI - HPI Summary HPI Summary: 37 y/o female presents to the urgent care c/o left 3rd and 4th fingers w/ bruise in her nails s/p injury after slamming the door at home around 1345pm today. Pt report pain is 8/10 and it is throbbing specially in the ring finger. Pt also states index finger was squeezed too, but it is not as painful. Pt states mild decrease ROM and mild numbness and tingling sensation over the nails. Pt denies previous injury, denies fever, SOB, chest pain. abdominal pain. , N/V/D. Pt removed her ring since her finger was mildly swollen. - History Of Current Complaint Chief Complaint: UCUpperExtremity Stated Complaint: LT HAND COMPLAINT Time Seen by Provider: 03/25/18 15:49 Hx Obtained From: Patient Hx Last Menstrual Period: 03/13/18 ?: No Onset/Duration: Sudden Onset, Lasting Hours - 3hrs Severity Initially: Moderate Severity Currently: Moderate Pain Intensity: 6 Pain Scale Used: 0-10 Numeric Character Of Pain: Throbbing Aggravating Factor(s): Movement Alleviating Factor(s): Rest Associated Signs And Symptoms: Positive: Swelling, Bruising - over the left 3rd and 4th nail bruising, Numbness/Tingling - mild - Allergies/Home Medications Allergies/Adverse Reactions: Allergies Allergy/AdvReac Type Severity Reaction Status Date / Time prednisone Allergy Swelling Verified 03/25/18 15:35 Of Face,Lips,& Throat ranitidine Allergy Tachycardia Verified 03/25/18 15:35 Sulfa (Sulfonamide Allergy Itching Verified 03/25/18 15:35 Antibiotics) Tetracyclines Allergy Itching Verified 03/25/18 15:35 seasonal Allergy Runny Nose Uncoded 03/25/18 15:35 PMH/Surg Hx/FS Hx/Imm Hx Previously Healthy: Yes Respiratory History: Asthma - Surgical History Surgical History: Yes Surgery Procedure, Year, and Place: Cholecystectomy, 05/17/16, [facility] [place]; Tubal Ligation, 2009, [facility] [place]; right hand x 2, including ulnar nerve entrapment 1999. tonsilectomy, GALLBLADDER REMOVED - Family History Known Family History: Positive: Cardiac Disease, Hypertension, Other - "Everything" Negative: Diabetes - Social History Occupation: Employed Full-time Lives: With Family Alcohol Use: None Substance Use Type: None Smoking Status (MU): Never Smoked Tobacco - Immunization History Most Recent Influenza Vaccination: 05/18/16 Most Recent Tetanus Shot: unknown Most Recent Pneumonia Vaccination: approx 2009 Review of Systems All Other Systems Reviewed And Are Negative: Yes Constitutional: Positive: Negative Skin: Positive: Bruising - over the left 3rd and 4th finger nails w/ swelling s/ p injury Eyes: Positive: Negative ENT: Positive: Negative Respiratory: Positive: Negative Cardiovascular: Positive: Negative Gastrointestinal: Positive: Negative Genitourinary: Positive: Negative Motor: Positive: Negative Neurovascular: Positive: Negative Musculoskeletal: Positive: Decreased ROM - left 3rd and 4th phalanx s/p injury, Other: - left 3rd and 4th phalanx pain s/p injury Neurological: Positive: Numbness - over the 4th finger nail Psychological: Positive: Negative Is Patient Immunocompromised?: No Physical Exam - Summary Physical Exam Summary: Vital Signs Reviewed: Yes General: well developed, well nourished female sitting in the examining table w/ o any apparent distress Eye Exam: Normal Eyes: Positive: Conjunctiva Clear - PERRLA, EOMI, fundi grossly normal ENT: Positive: Normal ENT inspection, Hearing grossly normal, Pharynx normal, TMs normal Neck: Positive: Supple, Nontender, No Lymphadenopathy Respiratory: Positive: Chest non-tender, Lungs clear, Normal breath sounds, No respiratory distress Cardiovascular: Positive: RRR, No Murmur, Pulses Normal, Brisk Capillary Refill Abdomen Description: Positive: Nontender, No Organomegaly, Soft. Negative: CVA Tenderness (R), CVA Tenderness (L) Bowel Sounds: Positive: Present Musculoskeletal: Positive: left Hand/Fingers: the L hand is without obvious asymmetry or deformity when compared to the R hand. mild swelling around dorsal side of #3rd and 4th distal phalanges, w/ subungal hematomas over nails , no erythema, atrophy, no obvious deformity. No open wounds,bony deformity. Normal cascade of fingers. Decrease ROM ot the left 3rd and 4th DIPJ due to pain. No focal fullness, but, mild throbbing pain, swelling of finger tip. Pulses and capillary refill WNL, positive reflexes and sensation intact Neurological: Positive: Alert, Muscle Tone Normal Psychological Exam: Normal Skin: Positive: Positive subungal hematoma over the LF 3rd and 4th nails, 4th> 3rd. sensation is intact, capillary refill WNL, reflexes WNL Triage Information Reviewed: Yes Vital Signs: Initial Vital Signs Temp 97.6 F 03/25/18 15:36 Pulse 105 03/25/18 15:36 Resp 16 03/25/18 15:36 BP 140/70 03/25/18 15:36 Pulse Ox 100 03/25/18 15:36 Hand/Wrist Course/Dx - Course Course Of Treatment: 37 y/o female presents to the urgent care c/o left 3rd and 4th fingers w/ bruise in her nails s/p injury after slamming the door at home around 1345pm today. Pt report pain is 8/10 and it is throbbing specially in the ring finger. Pt also states index finger was squeezed too, but it is not as painful. Pt states mild decrease ROM and mild numbness and tingling sensation over the nails. Pt denies previous injury, denies fever, SOB, chest pain. abdominal pain., N/V/D. Pt removed her ring since her finger was mildly swollen.Hx obtained. Pt w/ subungal hematoma on left 4th phalanx nail that needs trephination on examination. Left hand X-ray ordered: impression: There was no fracture, dislocation, soft tissue swelling or FB noted as per radiologist. Probably a left 3rd and 4th finger sprain. Digital Nerve block procedure and trephination of subungual hematoma procedure: The procedure was explained and consent obtained. [place] protocol performed. Digital nerve block procedure performed with 2mL of [place] 1% at the base of the 4th left phalanx with good anesthesia obtained. Sterile drape and prep were done. a discrete hole performed over the subungual hematoma to release blood w/ a cauterizer. Small amount of blood release. topical Bacitracin applied over the area. Wound covered with sterile dressing. The patient tolerated the procedure well and neurovascular intact. Pt Rx Bacitracin oint and Ibuprofen PO to alleviate symptoms. Pt's 4th finger immobilized with a finger splint and body tape with the #3rd finger. Pt advised RICE and take Ibuprofen PO for pain. F/u with Orthopedic Dr Carrasquillo if not improvement of symptoms in 1 week. Pt understood and agreed with D/C instructions. - Differential Dx/Diagnosis Differential Diagnosis/HQI/PQRI: Abrasion, Contusion, Fracture, Sprain, Strain, Subungual Hematoma, Tendonitis Provider Diagnosis: Subungual hematoma of finger of left hand, Finger sprain, Elevated BP without diagnosis of hypertension Discharge - Sign-Out/Discharge Documenting (check all that apply): Patient Departure - D/C home All imaging exams completed and their final reports reviewed: Yes - Discharge Plan Condition: Stable Disposition: HOME Prescriptions: Bacitracin OINTMENT* 1 applic TOPICAL BID #1 tube Ibuprofen TAB* [Motrin TAB* 600 MG] 600 mg PO Q6H PRN #30 tab PRN Reason: Pain Patient Education Materials: Subungual Hematoma (ED), Finger Sprain (ED), Low- Sodium Diet (ED) Referrals: [facility] [place] PHYSICIAN REFERRAL [Outside] - 1 Week Noam Arreola MD [Medical Doctor] - 1 Week Additional Instructions: 1-Please take medications as directed to alleviate pain and swelling. 2-Please apply ice, keep your index finger immobilized with the splint. Avoid heavy lifting. apply Bacitracin oint as directed over the nail. 3- Please f/u with Orthopedic Dr Carrasquillo or your PCP in 1 week is not improvement of symptoms for further evaluation and treatment. 4- Your BP is elevated today. please decrease salt in your diet, monitor BP and if it continues to be elevated please f/u with your PCP for further management - Billing Disposition and Condition Condition: STABLE Disposition: Home
[2018-03-25] MEDS ORDERED: Lidocaine 1%* 5 ML VIAL INJ ONE (16:34)
== END 2018-03-25 17:10 | disposition home or self-care (01) ==
LOC: UCCORT 14:35
DX: S60.042A Contusion of left ring finger without damage to nail, initial encounter (principal); W23.0XXA Caught, crushed, jammed, or pinched between moving objects, initial encounter; Y92.9 Unspecified place or not applicable; S60.032A Contusion of left middle finger without damage to nail, initial encounter; Z88.1 Allergy status to other antibiotic agents; Z88.2 Allergy status to sulfonamides; Z88.8 Allergy status to other drugs, medicaments and biological substances
CPT/HCPCS: 11740; 99212; A9270-GY; G0463

== ENCOUNTER 2018-09-30 11:19 | Emergency (ER) | payer OTHER ==
[2018-09-30 12:07] VITALS: BP 122/71
--- NOTE | 2018-09-30 13:37 | UC ---
Lower Extremity/Ankle HPI - HPI Summary HPI Summary: Pt presents with c/o right ankle pain that has not improved over the last 7-10 days. Pt "twisted her ankle" ~ 7-10 days ago and was seen by provider in another area of [place]. Pt was diagnosed with ankle sprain and told to F/U with PCP or orthopedic provider. Pt does not have PCP so, presents today with request for referral to Orthopedic provider. Pt brought radiology disc from visit from other provider. I did not review it. - History of Current Complaint Chief Complaint: UCLowerExtremity Stated Complaint: ANKLE INJURY(09/17/18) RECHECK Time Seen by Provider: 09/30/18 12:18 Hx Obtained From: Patient Hx Last Menstrual Period: 09/16/18 ?: No Onset/Duration: Sudden Onset, Lasting Days Severity Initially: Moderate Severity Currently: Moderate Pain Intensity: 5 Pain Scale Used: 0-10 Numeric Aggravating Factor(s): Standing, Ambulation Alleviating Factor(s): Rest, Elevation Able to Bear Weight: Yes - Risk Factors Gout Risk Factors: Negative DVT Risk Factors: Negative Septic Arthritis Risk Factor: Negative - Allergies/Home Medications Allergies/Adverse Reactions: Allergies Allergy/AdvReac Type Severity Reaction Status Date / Time prednisone Allergy Swelling Verified 09/30/18 12:01 Of Face,Lips,& Throat ranitidine Allergy Tachycardia Verified 09/30/18 12:01 Sulfa (Sulfonamide Allergy Itching Verified 09/30/18 12:01 Antibiotics) Tetracyclines Allergy Itching Verified 09/30/18 12:01 seasonal Allergy Runny Nose Uncoded 09/30/18 12:01 Home Medications: Home Medications NK [No Home Medications Reported] 09/30/18 [History Confirmed 09/30/18] PMH/Surg Hx/FS Hx/Imm Hx Previously Healthy: Yes - Surgical History Surgical History: Yes Surgery Procedure, Year, and Place: Cholecystectomy, 05/17/16, [facility] [place]; Tubal Ligation, 2009, [facility] [place]; right hand x 2, including ulnar nerve entrapment 1999. tonsilectomy, GALLBLADDER REMOVED - Family History Known Family History: Positive: Cardiac Disease, Hypertension, Other - "Everything" Negative: Diabetes - Social History Occupation: Employed Full-time Lives: With Family Alcohol Use: None Substance Use Type: None Smoking Status (MU): Never Smoked Tobacco Have You Smoked in the Last Year: No - Immunization History Most Recent Influenza Vaccination: 05/18/16 Most Recent Tetanus Shot: unknown Most Recent Pneumonia Vaccination: approx 2009 Vaccination Up to Date: No Review of Systems All Other Systems Reviewed And Are Negative: Yes Constitutional: Positive: Negative Skin: Positive: Negative Eyes: Positive: Negative ENT: Positive: Negative Respiratory: Positive: Negative Cardiovascular: Positive: Negative Gastrointestinal: Positive: Negative Genitourinary: Positive: Negative Motor: Positive: Negative, Other - pain, right ankle Neurovascular: Positive: Negative Musculoskeletal: Positive: Arthralgia - right ankle, Myalgia - right ankle Neurological: Positive: Negative Psychological: Positive: Negative Is Patient Immunocompromised?: No Physical Exam Triage Information Reviewed: Yes Appearance: Well-Appearing Vital Signs: Initial Vital Signs Temp 98.2 F 09/30/18 12:03 Pulse 88 09/30/18 12:03 Resp 18 09/30/18 12:03 BP 122/71 09/30/18 12:03 Pulse Ox 98 09/30/18 12:03 Vital Signs Reviewed: Yes Eye Exam: Normal ENT Exam: Normal Dental Exam: Normal Neck exam: Normal Respiratory: Positive: No respiratory distress Musculoskeletal Exam: Normal Musculoskeletal: Positive: Strength Intact Neurological Exam: Normal Psychological Exam: Normal Skin Exam: Normal Lower Extremity Course/Dx - Differential Dx/Diagnosis Differential Diagnosis/HQI/PQRI: Sprain, Strain Provider Diagnosis: Right ankle pain Discharge - Sign-Out/Discharge Documenting (check all that apply): Patient Departure All imaging exams completed and their final reports reviewed: No Studies - Discharge Plan Condition: Stable Disposition: HOME Patient Education Materials: Arthralgia (ED), R.I.C.E. Treatment (ED), Safe Use of NSAIDs (ED) Referrals: [facility] PHYSICIAN REFERRAL [Outside] - As Soon As Possible Noam Arreola MD [Medical Doctor] - As Soon As Possible No Primary Care Phys,NOPCP [Primary Care Provider] - Additional Instructions: Please establish care with a PCP and follow up with an orthopedic provider as needed. - Billing Disposition and Condition Condition: STABLE Disposition: Home
== END 2018-09-30 12:58 | disposition home or self-care (01) ==
LOC: UCCORT 11:19
DX: M25.571 Pain in right ankle and joints of right foot (principal)
CPT/HCPCS: 99211; G0463

== ENCOUNTER 2018-10-19 14:42 | Emergency (ER) | payer OTHER ==
--- NOTE | 2018-10-19 14:56 | UC ---
Respiratory Complaint HPI - HPI Summary HPI Summary: 38 yo female presents with cough. She tells me that her son was diagnosed with PNA about 2 weeks ago. Over the last 5 days pt has developed a sinus headache, dry cough, wheezing, and subjective fever. Has been taking ibuprofen with little relief. She has a history of asthma and has a xopenex inhaler, but has not been using this. She does not smoke. Denies sore throat, SOB, chest pain, n/ v. - History of Current Complaint Stated Complaint: FEVER,COUGH Time Seen by Provider: 10/19/18 14:55 Hx Obtained From: Patient Hx Last Menstrual Period: 09/16/18 Onset/Duration: Gradual Onset Severity Initially: Moderate Severity Currently: Moderate Pain Intensity: 6 Pain Scale Used: 0-10 Numeric Character: Cough: Nonproductive - Allergies/Home Medications Allergies/Adverse Reactions: Allergies Allergy/AdvReac Type Severity Reaction Status Date / Time prednisone Allergy Swelling Verified 10/19/18 15:04 Of Face,Lips,& Throat ranitidine Allergy Tachycardia Verified 10/19/18 15:04 Sulfa (Sulfonamide Allergy Itching Verified 10/19/18 15:04 Antibiotics) Tetracyclines Allergy Itching Verified 10/19/18 15:04 seasonal Allergy Runny Nose Uncoded 10/19/18 15:04 Home Medications: Home Medications Ibuprofen 400 mg PO Q6HR PRN 10/19/18 [History Confirmed 10/19/18] PMH/Surg Hx/FS Hx/Imm Hx Respiratory History: Asthma - Surgical History Surgical History: Yes Surgery Procedure, Year, and Place: [place] [facility] [place] [facility] [place]; right hand x 2, including ulnar nerve entrapment 1999. tonsilectomy, GALLBLADDER REMOVED - Family History Known Family History: Positive: Cardiac Disease, Hypertension, Other - "Everything" Negative: Diabetes - Social History Lives: With Family Alcohol Use: None Substance Use Type: None Smoking Status (MU): Never Smoked Tobacco Have You Smoked in the Last Year: No - Immunization History Most Recent Influenza Vaccination: 05/18/16 Most Recent Tetanus Shot: unknown Most Recent Pneumonia Vaccination: approx 2009 Vaccination Up to Date: No Review of Systems All Other Systems Reviewed And Are Negative: Yes Constitutional: Positive: Fever Skin: Positive: Negative Eyes: Positive: Negative ENT: Positive: Sinus Pain/Tenderness Respiratory: Positive: Cough Cardiovascular: Positive: Negative Gastrointestinal: Positive: Negative Neurological: Positive: Negative Psychological: Positive: Negative Physical Exam - Summary Physical Exam Summary: GENERAL: NAD. WDWN. No pain distress. SKIN: No rashes, sores, lesions, or open wounds. HEENT: Head: AT/NC Eyes: Conjunctiva clear without inflammation or discharge. Ears: Hearing grossly normal. TMs intact, no bulging, erythema, or edema. Nose: Nasal mucosa pink and moist. Mild TTP maxillary and frontal sinus. Throat: Posterior oropharynx without exudates, erythema, or tonsillar enlargement. Uvula midline. NECK: Supple. Nontender. No lymphadenopathy. CHEST: Mild wheezing throughout. No r/r. No accessory muscle use. Breathing comfortably and in no distress. CV: RRR. Without m/r/g. Pulses intact. Cap refill <2seconds NEURO: Alert. PSYCH: Age appropriate behavior. Triage Information Reviewed: Yes Vital Signs: Vital Signs: Temp Pulse Resp BP Pulse Ox 99.2 F 108 16 150/84 100 10/19/18 14:59 10/19/18 14:59 10/19/18 14:59 10/19/18 14:59 10/19/18 14:59 Vital Signs Reviewed: Yes Respiratory Course/Dx - Course Course Of Treatment: CXR: IMPRESSION: Airspace opacification in the right middle lobe is concerning for pneumonia.. She was given a levalbuterol and ipratropium nebulizer treatment in the clinic with good improvement. Less wheezing and reports easier to take a deep breath. Rx for zpak and advised her to use her xopenex inhaler. - Differential Dx/Diagnosis Provider Diagnosis: Pneumonia Discharge - Sign-Out/Discharge Documenting (check all that apply): Patient Departure All imaging exams completed and their final reports reviewed: Yes - Discharge Plan Condition: Stable Disposition: HOME Prescriptions: Azithromycin TAB* [Zithromax TAB (Z-KENRICK) 250 mg #6 tabs] 2 tab PO .TODAY, THEN 1 DAILY #1 kenrick Levalbuterol HFA INHALER* [Xopenex Hfa Inhaler*] 1 puff INH Q6H PRN #1 mdi PRN Reason: Shortness Of Breath Patient Education Materials: Pneumonia (ED) Referrals: No Primary Care Phys,NOPCP [Primary Care Provider] - Additional Instructions: If you develop a fever, shortness of breath, chest pain, new or worsening symptoms - please call your PCP or go to the ED immediately. Your blood pressure was high at todays visit. Please see your primary provider within 4 weeks for recheck and re-evaluation. Use your inhaler as directed for wheezing, shortness of breath, or cough. - Billing Disposition and Condition Condition: STABLE Disposition: Home
[2018-10-19 15:04] VITALS: BP 150/84
[2018-10-19] MEDS ORDERED: Ipratropium 0.5MG/2.5ML NEB* 0.5 MG/2.5 ML NEB.SOLN INH ONE (15:10)
[2018-10-19] MEDS ORDERED: Levalbuterol 0.63MG/3ML NEB* UNIT OF USE INH ONE (15:10)
== END 2018-10-19 15:56 | disposition home or self-care (01) ==
LOC: UCCORT 14:42
DX: J18.9 Pneumonia, unspecified organism (principal); Z88.1 Allergy status to other antibiotic agents; Z88.2 Allergy status to sulfonamides
CPT/HCPCS: 71046; 99212; G0463

== ENCOUNTER 2018-11-01 13:09 | Emergency (ER) | payer OTHER ==
[2018-11-01 13:26] VITALS: BP 135/54
[2018-11-01] MEDS ORDERED: Tetan/Diph/Pertus SYR(Tdap)* 0.5 ML SYR(BOOSTRIX) use SYR contains LATEX IM ONE (13:34)
--- NOTE | 2018-11-01 13:36 | UC ---
Bite Injury/Animal HPI - HPI Summary HPI Summary: 38-year-old female who was bitten by her own cat on her right wrist. She has 4 bite frye present. Patient's tetanus is unknown. The cat is up-to-date on immunizations. She has had the cat a proximally 1 year and she states occasionally the cat will "act like a jerk "and bite her. - History of Current Complaint Chief Complaint: UCBiteInjury Stated Complaint: CAT BITE Time Seen by Provider: 11/01/18 13:29 Hx Obtained From: Patient Hx Last Menstrual Period: 10/06/18 ?: No Severity Currently: Mild Severity Initially: Mild Pain Intensity: 7 Onset/Duration: Sudden Onset Type of Bite: Pet Has Animal Been Immunized?: Yes - Cat is up-to-date on all immunizations according to the patient. Character: Puncture - Four puncture wounds to the right wrist. Associated Signs And Symptoms: Positive: Erythema Animal Available for Observation: Yes Animal Control Notified: Yes - Allergies/Home Medications Allergies/Adverse Reactions: Allergies Allergy/AdvReac Type Severity Reaction Status Date / Time prednisone Allergy Swelling Verified 11/01/18 13:20 Of Face,Lips,& Throat ranitidine Allergy Tachycardia Verified 11/01/18 13:20 Sulfa (Sulfonamide Allergy Itching Verified 11/01/18 13:20 Antibiotics) Tetracyclines Allergy Itching Verified 11/01/18 13:20 seasonal Allergy Runny Nose Uncoded 11/01/18 13:20 PMH/Surg Hx/FS Hx/Imm Hx Previously Healthy: Yes Respiratory History: Asthma - Surgical History Surgical History: Yes Surgery Procedure, Year, and Place: Cholecystectomy, 05/17/16, [facility] [place]; Tubal Ligation, 2009, [facility] [place]; right hand x 2, including ulnar nerve entrapment 1999. tonsilectomy', GALLBLADDER REMOVED - Family History Known Family History: Positive: Cardiac Disease, Hypertension, Other - "Everything" Negative: Diabetes - Social History Alcohol Use: None Substance Use Type: None Smoking Status (MU): Never Smoked Tobacco Have You Smoked in the Last Year: No - Immunization History Most Recent Influenza Vaccination: 05/18/16 Most Recent Tetanus Shot: unknown Most Recent Pneumonia Vaccination: approx 2009 Vaccination Up to Date: No Review of Systems All Other Systems Reviewed And Are Negative: Yes Skin: Positive: Other - For puncture wounds and mild erythema around the puncture wounds from being bitten this morning. Musculoskeletal: Positive: Other: - Mild pain around the puncture wounds. Is Patient Immunocompromised?: No Physical Exam Triage Information Reviewed: Yes Appearance: Well-Appearing, No Pain Distress, Well-Nourished Vital Signs: Initial Vital Signs Temp 98.8 F 11/01/18 13:21 Pulse 105 11/01/18 13:21 Resp 16 11/01/18 13:21 BP 135/54 11/01/18 13:21 Pulse Ox 100 11/01/18 13:21 Vital Signs Reviewed: Yes Musculoskeletal: Positive: Strength Intact, ROM Intact, Other: - Good peripheral pulses neuro sensation and capillary refill, good finger strength with flexion and extension against resistance. Neurological: Positive: Alert, Muscle Tone Normal Psychological Exam: Normal Skin: Positive: Other - For puncture wounds near the right wrist surrounded by approximately 3 mm of erythema, no drainage. Bite Injury Course/Dx - Course Course Of Treatment: The patient was given a Tdap tetanus immunization here. She is leaving for vacation on Sunday so I advised her if she has any worsening symptoms she is to be seen at another urgent care or emergency room especially if she develops fever, chills or red streaks up her arm. She is agreeable to this plan of action. - Differential Dx/Diagnosis Provider Diagnosis: Cat bite of right wrist Discharge - Sign-Out/Discharge Documenting (check all that apply): Patient Departure All imaging exams completed and their final reports reviewed: No Studies - Discharge Plan Condition: Fair Disposition: HOME Prescriptions: Amoxicillin/Clavulanate TAB* [Augmentin TAB 875*] 875 mg PO BID 10 Days #20 tab Patient Education Materials: Animal Bite (ED) Referrals: No Primary Care Phys,NOPCP [Primary Care Provider] - Care [facility] [Outside] Additional Instructions: Warm moist compresses to the bite area 4-6 times a day for 20 minutes each time. Take the Augmentin with food. If you develop worsening symptoms, red streaks up your arm, fever or chills your to go to the emergency room. You were given a Tdap tetanus immunization which is good for 8-10 years. - Billing Disposition and Condition Condition: FAIR Disposition: Home
--- OUTSIDE RECORDS SUMMARY | 2018-11-01 15:20 | XMS REPORT | Continuity of Care Document ---
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 Problems Description No Information Available Social History Type Date Description Comments Sex Unknown ETOH Use Never used alcohol Tobacco Use Start: Unknown Patient has never smoked Recreational Drug Use Never Used Drugs Smoking Status Reviewed: 11/01/18 Patient has never smoked Exercise Type/Frequency Does not exercise Allergies, Adverse Reactions, Alerts Active Allergies Reaction Severity Comments Date Tetracycline 05/25/2016 Sulfa Antibiotics 05/25/2016 Prednisone 05/25/2016 Ranitidine panic attacks 10/03/2018 Medications Active Medications SIG Qnty Indications Ordering Provider Date Probiotic 1 by mouth every Unknown Capsules day Xopenex HFA inhale two puffs Unknown 45mcg/Act by mouth four Aerosol times a day as needed Ibuprofen 2 tabs by mouth Unknown 200mg Tablets as needed Immunizations Description No Information Available Vital Signs Date Vital Result Comment 11/01/2018 1:00pm Height 65 inches 5'5" Weight 215.00 lb Heart Rate 115 /min BP Systolic Sitting 138 mmHg BP Diastolic Sitting 80 mmHg Pain Level 0 O2 % BldC Oximetry 98 % BMI (Body Mass Index) 35.8 kg/m2 10/03/2018 11:11am Height 65 inches 5'5" Weight 212.00 lb Heart Rate 105 /min BP Systolic Sitting 122 mmHg BP Diastolic Sitting 88 mmHg Respiratory Rate 16 /min Pain Level 3 O2 % BldC Oximetry 98 % BMI (Body Mass Index) 35.3 kg/m2 Results Description No Information Available Procedures Description No Information Available Medical Devices Description No Information Available Encounters Type Date Location Provider Dx Diagnosis Office Visit 10/03/2018 Orthopedic Services Noam Arreola, M76.71 Peroneal 11:00a [facility] [place] tendinitis, right leg Assessments Date Code Description Provider 11/01/2018 M76.71 Peroneal tendinitis, right leg Noam Arreola MD 10/03/2018 M76.71 Peroneal tendinitis, right leg Noam Arreola MD Plan of Treatment 11/01/2018 - Noam Arreola, MDM76.71 Peroneal tendinitis, right legFollow up: Follow up: As needed Functional Status Description No Information Available Mental Status Description No Information Available Referrals Description No Information Available
== END 2018-11-01 13:46 | disposition home or self-care (01) ==
LOC: UCCORT 13:09
DX: S61.531A Puncture wound without foreign body of right wrist, initial encounter (principal); W55.01XA Bitten by cat, initial encounter; Y92.9 Unspecified place or not applicable; Z23 Encounter for immunization; Z88.1 Allergy status to other antibiotic agents; Z88.0 Allergy status to penicillin; Z88.8 Allergy status to other drugs, medicaments and biological substances
CPT/HCPCS: 90715; 99212; G0463

== ENCOUNTER 2020-03-05 12:05 | Observation (INO) ==
[~2020-03-05 12:05] MED LIST: HYDROmorphone PCA 20 MG/20 ML PCA.SYRING PCA SCH
[2020-03-05] MEDS ORDERED: Ondansetron 4 mg VIAL 2 MG/ML 2 ml VIAL ONE (13:23)
[2020-03-05] MEDS ORDERED: oxyCODONE SR 10 mg TAB ONE (13:23)
[2020-03-05] MEDS ORDERED: Clindamycin 900 MG/D5W BAG IVPB ONE (14:00)
[2020-03-05] MEDS ORDERED: Lidocaine 1% VIAL 10 MG/ML VIAL ONE (14:35)
[2020-03-05] MEDS ORDERED: Iohexol 350 (CONTRAST) 200 ML MDV IV ONE (14:36)
[2020-03-05] MEDS ORDERED: Heparin 2 UNITS/ML 1000 mls 1,000 ML IV ONE ×2 (14:36→14:38)
[2020-03-05] MEDS ORDERED: fentaNYL 100 mcg/2 ml 50 MCG/ML VIAL ONE ×3 (15:19→16:31)
[2020-03-05] MEDS ORDERED: Midazolam 5 mg/5 ml VIAL 1 mg/ml 5 ml VIAL (5 mg) ONE (15:20)
[2020-03-05] MEDS ORDERED: nitroGLYCERIN DRIP 25,000 MCG/250 ML BTL ONE (15:35)
[2020-03-05] MEDS ORDERED: HYDROmorphone 1 MG/1 ML SYRINGE ONE ×2 (17:00→17:11)
[2020-03-05] MEDS ORDERED: Prochlorperazine 5 mg/ml 2 ml VIAL (10 mg) ONE (17:07)
[2020-03-05] MEDS ORDERED: Prochlorperazine 5 mg/ml 2 ml VIAL (10 mg) IV PRN (19:42)
[2020-03-05 19:58] LABS: Urine Appearance Clear; Urine Bilirubin Negative (Negative); Urine Blood 1+ (Negative); Urine Color Straw; Urine Glucose 1+(50 mg/dL) (Negative); Urine Ketones 1+ (Negative); Urine Nitrite Negative (Negative); Urine Protein Negative (Negative); Urine Specific Gravity 1.045 (1.010-1.030); Urine Urobilinogen Negative (Negative)
[2020-03-05 20:01] LABS: Urine Bacteria Absent (Absent); Urine Red Blood Cell 2+(6-10/hpf) (Absent); Urine Squamous Epithelial Cell Present (Absent); Urine White Blood Cell 2+(11-20/hpf) (Absent)
[2020-03-05] MEDS ORDERED: Levalbuterol HFA INHALER MDI INH PRN (20:21)
[2020-03-06] MEDS: Ondansetron 4 mg VIAL 2 MG/ML 2 ml VIAL IV SCH ×3 (01:07→05:21)
[2020-03-06] MEDS: Nitrofurantoin (monohydrate/macrocrystals) 100 mg CAP PO SCH ×2 (01:10→08:42)
[2020-03-06] MEDS ORDERED: HYDROcodone/ACETAMIN 5/325 mg TAB PO PRN (08:48)
[2020-03-06] MEDS ORDERED: Cholecalciferol (VIT D3) 1,000 unit TAB PO SCH (09:00)
[2020-03-06] MEDS ORDERED: CYANOCOBALAMIN 100 MCG PO SCH (09:00)
[2020-03-06] MEDS ORDERED: Multivitamins/Minerals TAB PO SCH (09:00)
[2020-03-06 11:26] VITALS: BP 150/77
[2020-03-06] MEDS ORDERED: Ketorolac 10 mg TAB (NF) PO SCH (12:00)
[2020-03-08] MEDS ORDERED: Scopolamine PATCH Remove NOTE PATCH OFF ONE (13:00)
[2020-03-09] MEDS ORDERED: Scopolamine PATCH Remove NOTE PATCH OFF SCH (15:00)
== END 2020-03-06 15:30 | disposition home or self-care (01) ==
LOC: CHICATH 12:05 → INTOOBSV 20:45 → SSU 20:45
PROVIDERS: ADMIT Internal Medicine; ATTEND Student in an Organized Health Care Education/Training Program
PROC: ANG.UFE (2020-03-05 13:10)

== ENCOUNTER 2020-03-16 11:45 | Observation (INO) ==
[2020-03-16] MEDS ORDERED: NS 0.9% 1000 ml BAG 1,000 ML IV ONE (11:51)
[2020-03-16] MEDS ORDERED: Ondansetron 4 mg VIAL 2 MG/ML 2 ml VIAL IV ONE (12:34)
[2020-03-16 12:47] LABS: ABS Eosinophils 0.1 10^3/ul (0-0.6); ABS Lymphocytes 0.7 10^3/ul (1.0-4.8); ABS Monocytes 0.4 10^3/ul (0-0.8); ABS Neutrophils 8.9 10^3/ul (1.5-7.7); Eosinophil % 1.4 %; Hematocrit 32 % (35-47); Hemoglobin 10.3 g/dL (12.0-16.0); Lymphocyte % 6.6 %; Mean Corpuscular HGB Conc 32 g/dL (31-36); Mean Corpuscular Hemoglobin 26 pg (27-31); Mean Corpuscular Volume 81 fL (80-97); Mean Platelet Volume 8.4 fL (7.4-10.4); Platelet Count 334 10^3/uL (150-450); Red Blood Count 3.96 10^6 /uL (3.70-4.87); Red Cell Distribution Width 17 % (10-15); White Blood Count 10.2 10^3/uL (3.5-10.8)
[2020-03-16 12:57] LABS: Activated Partial Thrombo Time 39.9 seconds (26.0-38.0); INR 1.18 (0.82-1.09)
[2020-03-16 13:16] LABS: Albumin/Globulin Ratio 1.3 (1-3); BUN/Creatinine Ratio 12.8 (8-20); Calcium 9.3 mg/dL (8.6-10.3); EGFR African American 79.8 (>60); Globulin 3.2 g/dL (2-4); Magnesium 2.2 mg/dL (1.9-2.7); Potassium 3.9 mmol/L (3.5-5.0); Total Bilirubin 0.4 mg/dL (0.2-1.0); Total Protein 7.2 g/dL (6.4-8.9)
[2020-03-16 15:14] LABS: Urine Appearance Turbid; Urine Bilirubin Negative (Negative); Urine Blood 2+ (Negative); Urine Color Yellow; Urine Glucose Negative (Negative); Urine Ketones Negative (Negative); Urine Nitrite Positive (Negative); Urine Protein 1+(30 mg/dL) (Negative); Urine Specific Gravity 1.009 (1.010-1.030); Urine Urobilinogen Negative (Negative)
[2020-03-16 15:21] LABS: Urine Bacteria 1+ (Absent); Urine Red Blood Cell 3+(>10/hpf) (Absent); Urine White Blood Cell 3+(>20/hpf) (Absent)
[2020-03-16] MEDS ORDERED: cefTRIAXone 1 gm/50 mL NS BAG 1 GM/50 ML BAG IV ONE (15:37)
[2020-03-16] MEDS ORDERED: Buffered Lidocaine 1% SYRIN 1 ml INTRADERM ONE ×2 (17:11)
[2020-03-16] MEDS ORDERED: fentaNYL 100 mcg/2 ml 50 MCG/ML VIAL ONE ×2 (17:26→18:38)
[2020-03-16] MEDS ORDERED: Midazolam 2 mg/2 ml VIAL 1 mg/ml 2 ml VIAL (2 mg) ONE (17:26)
[2020-03-16] MEDS ORDERED: Succinylcholine 200 mg VIAL 20 mg/ml 10 ml VIAL (200 mg) ONE (17:27)
[2020-03-16] MEDS ORDERED: Lidocaine 2% PF 5 ML VIAL ONE (17:27)
[2020-03-16] MEDS ORDERED: Ondansetron 4 mg VIAL 2 MG/ML 2 ml VIAL ONE (17:27)
[2020-03-16] MEDS ORDERED: Propofol 10 MG/ML 20 ML BTL ONE (17:27)
[2020-03-16] MEDS ORDERED: Famotidine IV 10 MG/ML 2 ml VIAL (20 mg) ONE ×2 (17:33→19:18)
[2020-03-16] MEDS ORDERED: ceFOXitin 2 GM IVPREMIX 2 GM/50 ML BAG ONE (17:44)
[2020-03-16] MEDS ORDERED: Lactated Ringers 1000 ml BAG 1,000 ML IV SCH ×2 (18:00)
[2020-03-16] MEDS ORDERED: oxyCODONE/Acetamin 5/325 mg TAB PO PRN (19:09)
[2020-03-16] MEDS ORDERED: Prochlorperazine 5 mg/ml 2 ml VIAL (10 mg) IV PRN (19:19)
[2020-03-16] MEDS ORDERED: Acetaminophen IV 1 GM/100ML 1,000 MG/100 ML VIAL IVPB ONE (19:19)
[2020-03-16] MEDS ORDERED: fentaNYL 100 mcg/2 ml 50 MCG/ML VIAL IV PRN (19:19)
[2020-03-16] MEDS ORDERED: Naloxone 0.4 mg VIAL 0.4 mg/ml 1 ml VIAL IV PRN (19:19)
[2020-03-16] MEDS ORDERED: Levalbuterol 0.63MG/3ML NEB UNIT OF USE INH PRN (19:19)
[2020-03-16] MEDS ORDERED: Ondansetron 4 mg VIAL 2 MG/ML 2 ml VIAL IV PRN (19:19)
[2020-03-16] MEDS ORDERED: Famotidine IV 10 MG/ML 2 ml VIAL (20 mg) IV SLOW PU ONE (19:20)
[2020-03-16] MEDS ORDERED: Acetaminophen IV 1 GM/100ML 100 ML ONE (19:30)
[2020-03-16] MEDS ORDERED: Prochlorperazine 5 mg/ml 2 ml VIAL (10 mg) ONE (19:30)
[2020-03-16] MEDS ORDERED: LACTATED RINGERS 1000 ML BAG IV SCH (22:00)
[2020-03-17 05:40] LABS: ABS Eosinophils 0.1 10^3/ul (0-0.6); ABS Lymphocytes 0.8 10^3/ul (1.0-4.8); ABS Monocytes 0.6 10^3/ul (0-0.8); ABS Neutrophils 8.9 10^3/ul (1.5-7.7); Hematocrit 27 % (35-47); Mean Corpuscular HGB Conc 34 g/dL (31-36); Mean Corpuscular Hemoglobin 27 pg (27-31); Mean Corpuscular Volume 79 fL (80-97); Mean Platelet Volume 8.2 fL (7.4-10.4); Platelet Count 277 10^3/uL (150-450); Red Cell Distribution Width 17 % (10-15); White Blood Count 10.5 10^3/uL (3.5-10.8)
[2020-03-17 12:20] VITALS: BP 107/64
[2020-03-19] MEDS ORDERED: Scopolamine PATCH Remove NOTE PATCH OFF ONE (19:20)
== END 2020-03-17 15:30 | disposition home or self-care (01) ==
LOC: SSU 11:45 → ED 11:45
PROVIDERS: ADMIT Obstetrics & Gynecology; ATTEND Obstetrics & Gynecology
PROC: O.GYD&C (2020-03-16 17:15)